=== PATIENT | male | born 1990 | race African-American/Black ===

== ENCOUNTER 2017-07-21 18:54 | Emergency (ER) | payer SELFPAY ==
[~2017-07-21] VITALS: Ht 167.6 cm; Wt 70.0 kg
[2017-07-21 19:20] VITALS: BP 144/88
== END 2017-07-21 20:59 | disposition home or self-care (01) ==
LOC: ER 19:05
DX: S16.1XXA Strain of muscle, fascia and tendon at neck level, initial encounter (principal); V79.88XA Bus occupant (driver) (passenger) injured in other specified transport accidents, initial encounter; Y93.89 Activity, other specified; Y92.410 Unspecified street and highway as the place of occurrence of the external cause; Y99.8 Other external cause status
CPT/HCPCS: 99283